=== PATIENT | female | born 1990 | race Caucasian/White ===

== ENCOUNTER → 2023-01-20 | Outpatient (CLI) | payer OTHER ==
[2023-01-20 15:39] VITALS: BP 130/91; PULSE 118; TEMP 98.1; BMI 42.7
--- NOTE | 2023-01-20 15:52 | P.BASOAP ---
Subjective Progress Note Date: 01/20/23 Patient looking into panniculectomy. Objective - Vital Signs Vital signs: Vital Signs Temp 98.1 F 01/20/23 15:36 Pulse 118 H 01/20/23 15:36 Resp BP 130/91 01/20/23 15:36 Pulse Ox FiO2 Intake & Output 01/19/23 01/20/23 01/20/23 18:59 06:59 18:59 Weight 109.316 kg Assessment/Plan Plan: Date: 01/20/23 Initial Weight: 170.097 kg Initial BMI: 66.4 Current Weight: 109.316 kg Current BMI: 42.7 Type of Surgery: Total Volume in Band: Previous Volume: Volume Removed: Volume Added: Band Size:
== END ==
LOC: BARWHC3 15:06
PROVIDERS: ATTEND Surgery Plastic and Reconstructive Surgery
DX: E66.01 Morbid (severe) obesity due to excess calories (principal); Z68.41 Body mass index [BMI] 40.0-44.9, adult; Z91.048 Other nonmedicinal substance allergy status; Z88.6 Allergy status to analgesic agent; Z88.0 Allergy status to penicillin
CPT/HCPCS: 99211

== ENCOUNTER → 2023-05-27 | Outpatient (CLI) | payer OTHER ==
[2023-05-27 16:55] LABS: Partial Thromboplastin Time 24.6 sec (22.0-30.0); Prothrombin Time 10.6 sec (9.0-12.0)
[2023-05-27 20:24] LABS: % Iron Saturation 8.08 (12.00-45.00); ALT 20 U/L (8-44); AST 19 U/L (13-35); Albumin 4.7 d/dL (3.8-4.9); Albumin/Globulin Ratio 1.74 Ratio (1.60-3.17); Alkaline Phosphatase 57 U/L (41-126); BUN/Creat Ratio 19.62 Ratio (12.00-20.00); Blood Urea Nitrogen 15.7 mg/dL (9.0-27.0); Calcium 9.5 mg/dL (8.7-10.3); Carbon Dioxide 26.3 mmol/L (21.6-31.8); Chloride 101 mmol/L (96-109); Chol/HDL Ratio 2.47 Ratio; Ferritin 11.7 ng/mL (10.0-291.0); Globulin 2.7 d/dL (1.6-3.3); Glucose 87 mg/dL (70-110); Iron 37 UG/DL (50-170); LDL Cholesterol,Calculated 87.7 mg/dL (0.0-131.0); Phosphorus 4.1 mg/dL (2.4-5.1); Potassium 4.2 mmol/L (3.5-5.5); Sodium 139 mmol/L (135-145); Total Bilirubin 0.4 mg/dL (0.3-1.2); Total Iron Binding Capacity 458 UG/DL (228-460); Total Protein 7.4 d/dL (6.2-8.2); VLDL Calculation 10.36 mg/dL (5.00-40.00)
[2023-05-27 20:26] LABS: Prealbumin 25.6 mg/dL (18.0-42.0)
[2023-05-27 22:54] LABS: HCT 41.6 % (37.2-46.3); HGB 13.1 d/dL (12.0-15.0); MCH 26.8 pg (27.0-32.0); MCHC 31.5 d/dL (32.0-37.0); MCV 85.2 FL (80.0-97.0); Mean Platelet Volume 11.3 FL (9.5-12.2); NRBC Per 100 WBC 0 X 10*3/uL (0.00-0.01); Platelet Count 316 X 10*3/uL (140-440); RBC 4.88 X 10*6/uL (4.10-5.20); RDW 13.9 % (11.5-14.5); WBC 8.72 X 10*3/uL (4.50-10.00)
== END | disposition home or self-care (01) ==
LOC: LABWHC1 16:11
PROVIDERS: ATTEND Surgery Plastic and Reconstructive Surgery
DX: E66.01 Morbid (severe) obesity due to excess calories (principal); D50.8 Other iron deficiency anemias; K91.2 Postsurgical malabsorption, not elsewhere classified; E44.0 Moderate protein-calorie malnutrition; E44.1 Mild protein-calorie malnutrition; E45 Retarded development following protein-calorie malnutrition; E55.9 Vitamin D deficiency, unspecified; K74.1 Hepatic sclerosis; N19 Unspecified kidney failure; T56.894A Toxic effect of other metals, undetermined, initial encounter; K50.90 Crohn's disease, unspecified, without complications
CPT/HCPCS: 36415; 80053; 80061; 82306; 82525; 82607; 82728; 82746; 83036; 83540; 83550; 83735; 83970; 84100; 84134; 84255; 84425; 84443; 84590; 84630; 85027; 85610; 85730

== ENCOUNTER → 2023-06-02 | Outpatient (CLI) | payer OTHER ==
[2023-06-02 16:09] VITALS: BP 127/83; PULSE 91; TEMP 98.3; BMI 45.2
--- NOTE | 2023-06-02 16:32 | P.BASOAP ---
Subjective Progress Note Date: 06/02/23 She has 20 pounds skin. Aggressively correct; NEeds irion correction. Follow up labs. Needs cardiac clearance. Objective - Vital Signs Vital signs: Vital Signs Temp 98.3 F 06/02/23 16:04 Pulse 91 06/02/23 16:04 Resp BP 127/83 06/02/23 16:04 Pulse Ox FiO2 Intake & Output 06/01/23 06/02/23 06/02/23 18:59 06:59 18:59 Weight 115.802 kg Assessment/Plan Plan: Date: 06/02/23 Initial Weight: 170.097 kg Initial BMI: 66.4 Current Weight: 115.802 kg Current BMI: 45.2 Type of Surgery: Total Volume in Band: Previous Volume: Volume Removed: Volume Added: Band Size:
== END ==
LOC: BARWHC3 15:50
PROVIDERS: ATTEND Surgery Plastic and Reconstructive Surgery
DX: Z53.9 Procedure and treatment not carried out, unspecified reason (principal)
CPT/HCPCS: 99211

== ENCOUNTER → 2023-07-21 | Outpatient (CLI) | payer OTHER ==
[2023-07-21 20:38] LABS: Basophils # (A) 0.04 X 10*3/uL (0.00-0.10); Basophils % (A) 0.4 %; Eosinophils # (A) 0.02 X 10*3/uL (0.04-0.35); Eosinophils % (A) 0.2 %; HCT 45.3 % (37.2-46.3); HGB 14.6 d/dL (12.0-15.0); Lymphocytes # (A) 2.33 X 10*3/uL (0.90-5.00); Lymphocytes % (A) 25.4 %; MCHC 32.2 d/dL (32.0-37.0); MCV 86.9 FL (80.0-97.0); Monocytes # (A) 0.62 X 10*3/uL (0.20-1.00); Monocytes % (A) 6.8 %; NRBC Per 100 WBC 0 X 10*3/uL (0.00-0.01); Neutrophils # (A) 6.08 X 10*3/uL (1.80-7.70); Neutrophils % (A) 66.2 %; Platelet Count 294 X 10*3/uL (140-440); RBC 5.21 X 10*6/uL (4.10-5.20); RDW 14.5 % (11.5-14.5); WBC 9.18 X 10*3/uL (4.50-10.00)
[2023-07-21 20:44] LABS: ALT 21 U/L (8-44); AST 15 U/L (13-35); Albumin 4.8 d/dL (3.8-4.9); Albumin/Globulin Ratio 1.85 Ratio (1.60-3.17); Alkaline Phosphatase 51 U/L (41-126); BUN/Creat Ratio 18.89 Ratio (12.00-20.00); Carbon Dioxide 26.4 mmol/L (21.6-31.8); Chloride 102 mmol/L (96-109); Globulin 2.6 d/dL (1.6-3.3); Glucose 81 mg/dL (70-110); Potassium 4.7 mmol/L (3.5-5.5); Sodium 140 mmol/L (135-145); Total Bilirubin 0.4 mg/dL (0.3-1.2); Total Protein 7.4 d/dL (6.2-8.2)
== END | disposition home or self-care (01) ==
LOC: LABPAT 14:42
PROVIDERS: ATTEND Surgery Plastic and Reconstructive Surgery
DX: Z01.812 Encounter for preprocedural laboratory examination (principal)
CPT/HCPCS: 36415; 80053; 85025

== ENCOUNTER 2023-07-26 12:19 | Inpatient (IN) | payer OTHER ==
[2023-07-20 17:33] VITALS: BMI 46.0
--- NOTE | 2023-07-26 06:57 | P.GSHP ---
History of Present Illness H&P Date: 07/26/23 CHIEF COMPLAINT: Panniculitis HISTORY OF PRESENT ILLNESS: Kayleigh Fischer is a 32-year-old female who status post sleeve gastrectomy, she is 2 years out. She has panniculitis for over 3 years. She reports painful skin ulcerations and breakdown along her pannus despite medical treatments and prescriptions. She has been using prescription strength Nystatin powder without improvement. She has pulling sensation along her lower back from her pannus. She has troubles with grooming and hygiene as a result of her pannus. Her pannus interferes with her activities of daily living including dressing, bathing, and hygiene. She presents for evaluation for a panniculectomy. At height of 5 feet 3 inches, her ideal body weight is 140 pounds. She comes in 251 pounds from 374 pounds. Her BMI was 46.1. Her body mass index was 66.4. She has lost 122 pounds. She is 116 pounds overweight. PAST MEDICAL HISTORY: 1. Morbid obesity due to excess calories 2. Body mass index of 66.4, initial 3. Osteoarthritis of the knees. 4. Osteoarthritis of the hips 5. Osteoarthritis of the lower back. 6. Gastroesophageal reflux disease 7. Crohns disease 8. Hypertensive heart disease 9. Generalized anxiety disorder PAST SURGICAL HISTORY: 1. section x 3 2. Sleeve gastrectomy HOME MEDICATIONS: Reviewed ALLERGIES: Reviewed SOCIAL HISTORY: Denies past tobacco use. FAMILY HISTORY: No family history of ulcerative colitis disease or Crohn's disease. Family history of morbid obesity. No lupus in the family. No reports of stomach or esophageal cancer. Aunt had blood clot. Family history of gallbladder disease. REVIEW OF ORGAN SYSTEMS: CONSTITUTIONAL: At height of 5 feet 3 inches, her ideal body weight is 140 pounds. She comes in 374 pounds. Her body mass index is 66.4. She is 234 pounds overweight. HEENT: Denies any active troubles with vision or hearing. ENDOCRINE: Denies diabetes. No hypothyroidism. CARDIOVASCULAR: Denies past reports of palpitations or heart attacks or chest pain. Has hypertensive heart disease. RESPIRATORY: Has daytime somnolence. Denies asthma. GASTROINTESTINAL: Denies any bright red blood per rectum. Has Crohn's disease MUSCULOSKELETAL: Has lower back pain and joint pain. Has osteoarthritis of the knees. History of bilateral lower extremity edema. NEURO: No headaches. No seizure disorders. PSYCH: Denies depression. No suicidal ideation. RHEUMATOLOGIC: No lupus. No rheumatoid arthritis. HEMATOLOGIC: Has abnormal bleeding or bruising. No personal history of DVTs. SKIN: No rash. No skin cancer. PHYSICAL EXAM: VITAL SIGNS: Height 5 foot 2 inches, weight 251 pounds. BMI 46.1 GENERAL: Well-developed in no acute distress. HEENT: No scleral icterus. Extraocular movements grossly intact. Hears conversational speech. No nasal drainage. NECK: Supple without lymphadenopathy. CHEST: Nonlabored respirations with equal bilateral excursions. CARDIOVASCULAR:Tachycardic. Distal 2+ pulses. ABDOMEN: Obese, soft, nontender, nondistended. Panniculitis grade 3, over MUSCULOSKELETAL: No clubbing, cyanosis. NEURO: No focal or lateralizing signs. Cranial nerves 2 through 12 grossly within normal limits. PSYCH: Appropriate affect. Alert and oriented to person, place and time. SKIN: Good skin turgor. Well perfused. ASSESSMENT: 1. Panniculitis 2. Body mass index of 46.1 3. Osteoarthritis of the knees. 4. Osteoarthritis of the hips 5. Osteoarthritis of the lower back. 6. Gastroesophageal reflux disease 7. Crohns disease 8. Elevated liver enzymes 9. Hypertriglyceridemia 10. Vitamin D deficiency 11. Secondary hyperparathyroidism 12. Hypertensive heart disease 13. Generalized anxiety disorder 14. Morbid obesity due to excess calories PLAN: 1. Recommend panniculectomy for chronic panniculitis with concomittant severe lower back pain and uncontrolled symptoms despite systemic and local treatment including limitation of activities of daily living. Anticipated resection over 10+ pounds described. Panniculectomy should correct her functional deficits. 2. Recommend 2 week protein diet for optimal recovery 3. Risks of bleeding, needs for drains, flap failure, infection, need for further surgery were described. She is high risk for warren-operative complications with anticipated 10+ skin resection. 4. Inpatient hospitalization also described 5. DVT prophylaxis. 6 Extended recovery more than 6-8 weeks described including placement of drains more than 2 weeks reviewed. Past Medical History Past Medical History: GERD/Reflux, Hypertension Additional Past Medical History / Comment(s): CROHNS/IBS, migraines,140# wt loss History of Any Multi-Drug Resistant Organisms: None Reported Past Surgical History: Bariatric Surgery, Section, Cholecystectomy Additional Past Surgical History / Comment(s): c section x 3, lap cholecystectomy 03-24-21. sleeve gastrectomy 05-12-21 Past Anesthesia/Blood Transfusion Reactions: No Reported Reaction Additional Past Anesthesia/Blood Transfusion Reaction / Comment(s): no hx blood transfusion Smoking Status: Never smoker - Past Family History Mother Family Medical History: No Reported History Medications and Allergies Home Medications Medication Instructions Recorded Confirmed Type ALPRAZolam [Xanax] 0.5 mg PO DAILY PRN 01/10/21 07/20/23 History Cetirizine HCl [Zyrtec] 10 mg PO DAILY 01/10/21 07/20/23 History Cyclobenzaprine [Flexeril] 10 mg PO DAILY PRN 05/07/21 07/20/23 History Acetaminophen Oral Susp [Tylenol] 1,000 mg PO Q6H #400 ml 05/14/21 07/20/23 Rx bisacodyL [Dulcolax] 5 mg PO DAILY PRN #10 tablet.dr 05/14/21 07/20/23 Rx Calcium Citrate 500 mg PO DAILY 08/20/21 07/20/23 History Ergocalciferol [Vitamin D2 (1250 1,250 mcg PO WEEKLY 08/20/21 07/20/23 History Mcg = 14732 Iu)] Multivitamin with Iron 1 each PO DAILY 08/20/21 07/20/23 History [Multivitamins with Iron] lisinopriL [Zestril] 10 mg PO QAM 06/02/23 07/20/23 History Butalb/Acetaminophen/Caffeine 1 tab PO Q4H PRN 07/20/23 07/20/23 History [Fioricet 50-325-40] Elderberry Fruit [Elderberry] 50 mg PO DAILY 07/20/23 07/20/23 History L.acidoph,Paracasei, B.lactis 1 each PO DAILY 07/20/23 07/20/23 History [Probiotic] Lisdexamfetamine Dimesylate 30 mg PO QAM 07/20/23 07/20/23 History [Vyvanse] Nystatin 100,000 Unit/gm Powd 1 applic TOPICAL BID PRN 07/20/23 07/20/23 History [Mycostatin Powder] Allergies Allergy/AdvReac Type Severity Reaction Status Date / Time adhesive Allergy Rash/Hives Verified 07/20/23 17:12 aspirin Allergy Rash/Hives Verified 07/20/23 17:12 hydrochlorothiazide Allergy Nausea & Verified 07/20/23 17:12 Vomiting ibuprofen [From Motrin] Allergy Rash/Hives Verified 07/20/23 17:12 Penicillins Allergy Rash/Hives Verified 07/20/23 17:12
[~2023-07-26 12:19] MED LIST: DEXAMETHASONE SOD PHOSPHATE 4 MG/ML 1 ML VIAL IV ONE; HEPARIN SODIUM,PORCINE/PF 5,000 UNIT/0.5 ML SYRINGE SQ PRN; LIDOCAINE 1% (10MG/ML) FOR IV START INTRADERMA PRN; MIDAZOLAM 2 MG/2 ML VIAL IV PRN; ONDANSETRON 4 MG/2 ML VIAL IVP ONE; ONDANSETRON 4 MG/2 ML VIAL IVP PRN
[2023-07-26] MEDS ORDERED: SCOPOLAMINE 1 MG/72 HR PATCH TRANSDERM ONE (13:45)
[2023-07-26] MEDS: LACTATED RINGERS 1,000 ML IV SCH (13:48)
[2023-07-26] MEDS ORDERED: PROPOFOL 10 MG/ML 20 ML VIAL IV ONE (16:39)
[2023-07-26] MEDS ORDERED: GLYCOPYRROLATE 0.2 MG/ML 2 ML VIAL ONE (16:39)
[2023-07-26] MEDS ORDERED: diphenhydrAMINE 50 MG/ML 1 ML VIAL ONE (16:39)
[2023-07-26] MEDS ORDERED: fentaNYL (PF) 50 MCG/ML 2 ML AMP ONE (16:39)
[2023-07-26] MEDS ORDERED: ROCURONIUM 10 MG/ML (5 ML VIAL) IV ONE (16:39)
[2023-07-26] MEDS ORDERED: LIDOCAINE 1% INJ 10MG/ML (20 ML MDV) ONE (16:39)
[2023-07-26] MEDS ORDERED: NEOSTIGMINE 1 MG/ML 10 ML VIAL ONE (16:39)
[2023-07-26] MEDS ORDERED: MIDAZOLAM 2 MG/2 ML VIAL ONE (16:39)
[2023-07-26] MEDS ORDERED: SUCCINYLCHOLINE CHLORIDE 200 MG/10 ML VIAL IV ONE (16:39)
[2023-07-26] MEDS ORDERED: LACTATED RINGERS 1,000 ML IV ONE (19:27)
[2023-07-26] MEDS: HYDROmorphone 0.5 MG/0.5 ML SYRINGE IVP PRN ×2 (20:18→20:28)
[2023-07-26] MEDS ORDERED: NALOXONE 0.4 MG/ML 1 ML VIAL IV PRN (20:31)
[2023-07-26] MEDS ORDERED: BUTALB/APAP/CAFF 50-325-40MG TAB PO PRN (20:32)
[2023-07-26] MEDS ORDERED: ALPRAZolam 0.5 MG TAB PO PRN (20:32)
[2023-07-26] MEDS ORDERED: bisacodyL 5 MG TABLET.DR PO PRN (20:32)
[2023-07-26] MEDS ORDERED: CYCLOBENZAPRINE 10 MG TAB PO PRN (20:32)
--- NOTE | 2023-07-26 20:37 | P.OP ---
Date of Procedure: 07/26/23 Description of Procedure: SURGEON: GRETCHEN ALVAREZ MD PREOPERATIVE DIAGNOSES: 1. Panniculitis 2. Body mass index of 68.5 to 46.1 3. Osteoarthritis of the knees. 4. Osteoarthritis of the hips 5. Osteoarthritis of the lower back. 6. Gastroesophageal reflux disease 7. Crohns disease 8. Elevated liver enzymes 9. Hypertriglyceridemia 10. Vitamin D deficiency 11. Secondary hyperparathyroidism 12. Hypertensive heart disease 13. Generalized anxiety disorder 14. Morbid obesity due to excess calories 15. Status post massive weight loss, 123 pounds. POSTOPERATIVE DIAGNOSES: 1. Panniculitis 2. Body mass index of 68.5 to 46.1 3. Osteoarthritis of the knees. 4. Osteoarthritis of the hips 5. Osteoarthritis of the lower back. 6. Gastroesophageal reflux disease 7. Crohns disease 8. Elevated liver enzymes 9. Hypertriglyceridemia 10. Vitamin D deficiency 11. Secondary hyperparathyroidism 12. Hypertensive heart disease 13. Generalized anxiety disorder 14. Morbid obesity due to excess calories 15. Status post massive weight loss, 123 pounds. OPERATION: 1. Panniculectomy, 13.6 pounds. ANESTHESIA: General ESTIMATED BLOOD LOSS: 250 mL SPECIMENS REMOVED: Pannus 13.6 pounds. COMPLICATIONS: None. CONDITION: Stable. DRAINS: Two #19 Gallo drains below abdominal flap extending through the pubis. OPERATIVE FINDINGS: 1. Pannus weighing 13.6 pounds, excised. INDICATIONS: Kayleigh Fischer is a 32-year-old female who status post sleeve gastrectomy, she is 2 years out. She has panniculitis for over 3 years. She reports painful skin ulcerations and breakdown along her pannus despite medical treatments and prescriptions. She has been using prescription strength Nystatin powder without improvement. She has pulling sensation along her lower back from her pannus. She has troubles with grooming and hygiene as a result of her pannus. Her pannus interferes with her activities of daily living including dressing, bathing, and hygiene. She presents for evaluation for a panniculectomy. At height of 5 feet 3 inches, her ideal body weight is 140 pounds. She comes in 251 pounds from 374 pounds. Her BMI was 46.1. Her body mass index was 66.4. She has lost 122 pounds. She is 116 pounds overweight. Despite medical therapy with prescription powders, she has developed severe medical refractory panniculitis. Given her clinical symptoms, including massive weight loss, she elected for surgical intervention with a panniculectomy. Benefits and risks of the procedure including bleeding, infection, risk of flap failure, abdominal wall seromas, chronic pain were described at length. Informed consent was obtained. DESCRIPTION: In the preanesthesia care unit the patient was marked with an indelible marker. She had also been given heparin subcutaneously. The patient was brought into the operating room and laid in supine position. After general induction, a Winchester catheter was placed. The abdomen was then prepped and draped in standard sterile fashion using ChloraPrep. The skin was prepped as far laterally to the back, inferiorly to the upper thighs and superiorly to above the bilateral breasts. A timeout protocol was confirmed with the surgical team regarding patient's name, procedure to be performed, including preoperative medications. She had rec eived Ancef 3 grams IV antibiotics. Once the time-out protocol was confirmed with the surgical team, the patient was re-marked with indelible marker whereby the midline of the xiphoid to the mons pubis was marked. The anterior/superior iliac spine along the bilateral hips was also marked. Approximately 8 cm above the pubis commissure a transverse incision was made for the inferior portion of the flap. Using a #10 blade, the incision was taken from the midline laterally to above the anterior/superior iliac spine, initially on the left side of the patient and then on the right side of the brandee ent. The umbilicus was transected. Electro-Bovie cautery was used to control for hemostasis. The dissection was taken down to the level of the fascia. Landmarks used were the xiphoid process as well as the bilateral costal margins for the superior margin. Care was taken to avoid any creation of dog ears during the dissection. Hemostasis was once again checked with electro-Bovie cautery and all defects were addressed. Attention was now brought to closure of the flap. Using stainless steel skin geoff, the midline was once again marked of the upper flap as well as the pubic commissure. The patient was placed in a flexed position of approximately 30 degrees at the hips. The pannus was extended inferiorly to the feet. The upper flap was created once the excess skin was excised. Again care was taken to avoid any dog ears along the lateral aspect of the incisions. Once excised, the pannus was weighed at 13.6 pounds. The upper and lower flaps were reapproximated at the midline and then laterally to the skin with skin geoff. Once reapproximated, the skin was closed in layers using 0 Vicryl for the superficial fascial system followed by running 3-0 Monocryl for the deep dermis in a running subcuticular fashion. Prior to skin closure, two round #19 Gallo drains were placed underneath the flap and brought out just inferior to the incision along the pubis. Drain stitch using 2-0 nylon was placed. Once the incision was closed, bulb suction was attached. Hemostasis was checked. At the end of the procedure, the needle, sponge and instrument count was verified correct. Exofin tape was placed along the length of the incision. Optifoam dressings were applied over the incision and used as a drain sponge. The patient was then transferred to a hospital bed in a beach chair position. An abdominal binder was placed and marked. The patient was taken to the postanesthesia care unit in stable condition, awake and extubated.
[2023-07-26] MEDS ORDERED: ONDANSETRON 4 MG/2 ML VIAL IVP ONE (20:50)
[2023-07-26] MEDS ORDERED: ACETAMINOPHEN IV (For NPO) 1,000 MG in EMPTY BAG 1 BAG IVPB ONE (21:30)
[2023-07-26] MEDS: fentaNYL PCA 500 MCG/50 ML BAG IV SCH (21:51)
[2023-07-26] MEDS: diphenhydrAMINE 50 MG/ML 1 ML VIAL IVP SCH (22:06)
[2023-07-26] MEDS: DEXAMETHASONE SOD PHOSPHATE 4 MG/ML 1 ML VIAL IVP SCH (22:06)
[2023-07-26] MEDS ORDERED: SCOPOLAMINE 1 MG/72 HR PATCH TRANSDERM STA (22:07)
[2023-07-26] MEDS: D5-0.45% NACL WITH KCL 20MEQ/L 1,000 ML IV SCH (22:09)
[2023-07-26] MEDS: ONDANSETRON 4 MG/2 ML VIAL IVP SCH (22:46)
[2023-07-27] MEDS: diphenhydrAMINE 50 MG/ML 1 ML VIAL IVP SCH ×4 (00:24→17:15)
[2023-07-27] MEDS: DEXAMETHASONE SOD PHOSPHATE 4 MG/ML 1 ML VIAL IVP SCH ×4 (00:25→17:15)
[2023-07-27] MEDS: ACETAMINOPHEN ORAL SUSP (PEDS) 3,840 MG/120 ML BOTTLE PO SCH ×4 (03:54→21:11)
[2023-07-27] MEDS: ONDANSETRON 4 MG/2 ML VIAL IVP SCH ×4 (03:55→21:11)
[2023-07-27] MEDS: D5-0.45% NACL WITH KCL 20MEQ/L 1,000 ML IV SCH ×3 (04:12→17:17)
[2023-07-27] MEDS: fentaNYL PCA 500 MCG/50 ML BAG IV SCH ×2 (05:13→21:06)
[2023-07-27] MEDS: LORATADINE 10 MG TAB PO SCH (09:07)
[2023-07-27] MEDS: lisinopriL 10 MG TAB PO SCH (09:13)
[2023-07-27] MEDS: ENOXAPARIN 30 MG/0.3 ML SYRINGE SQ SCH (09:31)
[2023-07-27] MEDS: PANTOPRAZOLE 40 MG/10 ML VIAL IV SCH (09:32)
[2023-07-27] MEDS: LACTATED RINGERS 1,000 ML IV SCH (09:57)
[2023-07-27 10:49] LABS: Basophils # (A) 0.04 X 10*3/uL (0.00-0.10); Basophils % (A) 0.3 %; Eosinophils # (A) 0 X 10*3/uL (0.04-0.35); Eosinophils % (A) 0 %; HCT 31.2 % (37.2-46.3); HGB 10.2 d/dL (12.0-15.0); Lymphocytes # (A) 0.78 X 10*3/uL (0.90-5.00); Lymphocytes % (A) 5.2 %; MCH 28.6 pg (27.0-32.0); MCHC 32.7 d/dL (32.0-37.0); MCV 87.4 FL (80.0-97.0); Mean Platelet Volume 10.9 FL (9.5-12.2); Monocytes # (A) 0.92 X 10*3/uL (0.20-1.00); Monocytes % (A) 6.1 %; NRBC Per 100 WBC 0 X 10*3/uL (0.00-0.01); Neutrophils # (A) 13.22 X 10*3/uL (1.80-7.70); Neutrophils % (A) 87.5 %; Platelet Count 275 X 10*3/uL (140-440); RBC 3.57 X 10*6/uL (4.10-5.20); RDW 13.8 % (11.5-14.5); WBC 15.09 X 10*3/uL (4.50-10.00)
--- NOTE | 2023-07-27 15:22 | P.PN ---
Subjective Progress Note Date: 07/27/23 CHIEF COMPLAINT: Panniculitis HISTORY OF PRESENT ILLNESS: Patient postop day #1 status post panniculectomy. Patient does complain of abdominal pain. She's only ambulated to her chair. Winchester catheter removed this morning. Patient did urinate. She is still requiring ALFALFA DEHYDRATOR OPERATOR pump. Denies any nausea vomiting. YOSVANY drains with a goal of 210 mL sanguinous output. Afebrile. WBC is 15.09 Hgb 10 PHYSICAL EXAM: VITAL SIGNS: Reviewed GENERAL: Well-developed in no acute distress. HEENT: No sclera icterus. Extraocular movements grossly intact. Moist buccal mucosa. Head is atraumatic, normocephalic. Hears conversational speech. No nasal drainage. NECK: Supple without lymphadenopathy. CHEST: Non-labored respirations and equal bilateral excursions. CARDIOVASCULAR: Palpable 2+ radial pulses. ABDOMEN: Soft. Nondistended. Nontender. MUSCULOSKELETAL: No clubbing or cyanosis. NEUROLOGIC: No focal or lateralizing signs. Cranial nerves II through XII grossly intact. PSYCH: Appropriate affect. Alert and oriented to person, place and time. SKIN: Well perfused. Good skin turgor. ASSESSMENT: 1. Panniculitis 2. Body mass index of 68.5 to 46.1 3. Osteoarthritis of the knees. 4. Osteoarthritis of the hips 5. Osteoarthritis of the lower back. 6. Gastroesophageal reflux disease 7. Crohns disease 8. Elevated liver enzymes 9. Hypertriglyceridemia 10. Vitamin D deficiency 11. Secondary hyperparathyroidism 12. Hypertensive heart disease 13. Generalized anxiety disorder 14. Morbid obesity due to excess calories 15. Status post massive weight loss, 123 pounds. 16. Leukocytosis possibly related to steroids PLAN: -Continue pain management -Continue regular diet -Continue abdominal binder. Do not remove abdominal binder -Continue IV fluids -Encourage patient to ambulate -Encourage patient to use incentive spirometer -Repeat CBC in a.m. -DVT prophylaxis [employer] Physician Electrical & Instrumentation Supervisor note has been reviewed by physician. Signing provider agrees with the documented findings, assessment, and plan of care. Objective - Vital Signs Vital signs: Vital Signs Temp 98.6 F 07/27/23 13:48 Pulse 93 07/27/23 13:48 Resp 16 07/27/23 13:48 BP 100/63 07/27/23 13:48 Pulse Ox 98 07/27/23 13:48 FiO2 Intake & Output 07/26/23 07/27/23 07/27/23 18:59 06:59 18:59 Intake Total 1050 900 Output Total 1080 80 Balance 1050 -180 -80 Weight 116.2 kg 116.2 kg Intake: IV 1050 900 Output: Drainage 480 80 Left Lower 260 40 Right Lower 220 40 Urine 300 Estimated Blood Loss 300 Other: Voiding Method Indwelling Catheter Indwelling Catheter - Labs CBC & Chem 7: 07/27/23 06:27 Labs: Abnormal Lab Results - Last 24 Hours (Table) 07/27/23 Range/Units 06:27 WBC 15.09 H (4.50-10.00) X 10*3/uL RBC 3.57 L (4.10-5.20) X 10*6/uL Hgb 10.2 L (12.0-15.0) d/dL Hct 31.2 L (37.2-46.3) % Neutrophils # 13.22 H (1.80-7.70) X 10*3/uL Lymphocytes # 0.78 L (0.90-5.00) X 10*3/uL Eosinophils # 0 L (0.04-0.35) X 10*3/uL
[2023-07-28] MEDS: diphenhydrAMINE 50 MG/ML 1 ML VIAL IVP SCH ×3 (00:51→13:42)
[2023-07-28] MEDS: D5-0.45% NACL WITH KCL 20MEQ/L 1,000 ML IV SCH ×3 (00:51→13:42)
[2023-07-28] MEDS: DEXAMETHASONE SOD PHOSPHATE 4 MG/ML 1 ML VIAL IVP SCH ×3 (00:51→13:43)
[2023-07-28] MEDS: ONDANSETRON 4 MG/2 ML VIAL IVP SCH ×3 (04:21→16:12)
[2023-07-28] MEDS: ACETAMINOPHEN ORAL SUSP (PEDS) 3,840 MG/120 ML BOTTLE PO SCH ×3 (04:22→16:03)
[2023-07-28] MEDS: lisinopriL 10 MG TAB PO SCH (09:55)
[2023-07-28] MEDS: ENOXAPARIN 30 MG/0.3 ML SYRINGE SQ SCH (10:01)
[2023-07-28] MEDS: LORATADINE 10 MG TAB PO SCH (10:01)
[2023-07-28] MEDS: PANTOPRAZOLE 40 MG/10 ML VIAL IV SCH (10:02)
[2023-07-28] MEDS: LACTATED RINGERS 1,000 ML IV SCH (10:43)
[2023-07-28] MEDS: HYDROmorphone 1 MG/ML 1 ML SYRINGE IVP PRN ×2 (11:06→16:12)
[2023-07-28 11:19] LABS: Basophils # (A) 0.02 X 10*3/uL (0.00-0.10); Basophils % (A) 0.1 %; Eosinophils # (A) 0.04 X 10*3/uL (0.04-0.35); Eosinophils % (A) 0.3 %; HCT 24.8 % (37.2-46.3); HGB 8.2 d/dL (12.0-15.0); Lymphocytes # (A) 1.18 X 10*3/uL (0.90-5.00); Lymphocytes % (A) 7.5 %; MCHC 33.1 d/dL (32.0-37.0); MCV 87.6 FL (80.0-97.0); Mean Platelet Volume 11.2 FL (9.5-12.2); Monocytes # (A) 1.49 X 10*3/uL (0.20-1.00); Monocytes % (A) 9.4 %; NRBC Per 100 WBC 0 X 10*3/uL (0.00-0.01); Neutrophils # (A) 12.91 X 10*3/uL (1.80-7.70); Neutrophils % (A) 81.7 %; Platelet Count 236 X 10*3/uL (140-440); RBC 2.83 X 10*6/uL (4.10-5.20); RDW 14.4 % (11.5-14.5)
[2023-07-28 14:32] VITALS: BP 95/58; PULSE 100; RESP 18; TEMP 98.6
--- NOTE | 2023-07-28 14:35 | P.DS ---
Providers Date of admission: 07/26/23 12:19 Expected date of discharge: 07/28/23 Attending physician: Carol Hoffman Consults: 07/26/23 09:00 Consult Physician Routine Consulting Provider: [facility] Consult Reason/Comments: [facility] Do you want consulting provider notified?: Yes Primary care physician: Richi Rendon Hospital Course: Discharge diagnosis 1. Panniculitis 2. Body mass index of 68.5 to 46.1 3. Osteoarthritis of the knees. 4. Osteoarthritis of the hips 5. Osteoarthritis of the lower back. 6. Gastroesophageal reflux disease 7. Crohns disease 8. Elevated liver enzymes 9. Hypertriglyceridemia 10. Vitamin D deficiency 11. Secondary hyperparathyroidism 12. Hypertensive heart disease 13. Generalized anxiety disorder 14. Morbid obesity due to excess calories 15. Status post massive weight loss, 123 pounds. Hospital course Kayleigh Fischer is a 32-year-old female who status post sleeve gastrectomy, she is 2 years out. She has panniculitis for over 3 years. She reports painful skin ulcerations and breakdown along her pannus despite medical treatments and prescriptions. Patient is status post panniculectomy. Her pain is controlled. She is up and ambulating. She is tolerating diet. She did have a bowel movement. She's afebrile. She is stable for discharge. Physician Tire Fixer note has been reviewed by physician. Signing provider agrees with the documented findings, assessment, and plan of care. Patient Condition at Discharge: Stable Plan - Discharge Summary Discharge Rx Participant: Yes New Discharge Prescriptions: New Omeprazole [PriLOSEC] 40 mg PO DAILY #30 cap Acetaminophen Tab [Tylenol] 1,000 mg PO Q6HR PRN #30 tablet PRN Reason: Pain Simethicone 40 mg/0.6 ml Drops [Mylicon Drops] 40 mg PO PCHS PRN #30 ml PRN Reason: gas Continue ALPRAZolam [Xanax] 0.5 mg PO DAILY PRN PRN Reason: Anxiety Cyclobenzaprine [Flexeril] 10 mg PO DAILY PRN PRN Reason: Pain bisacodyL [Dulcolax] 5 mg PO DAILY PRN #10 tablet.dr PRN Reason: Constipation lisinopriL [Zestril] 10 mg PO QAM Butalb/Acetaminophen/Caffeine [Fioricet 50-325-40] 1 tab PO Q4H PRN PRN Reason: migraines Cetirizine HCl [Zyrtec] 10 mg PO DAILY L.acidoph,Paracasei, B.lactis [Probiotic] 1 each PO DAILY Discontinued Ergocalciferol [Vitamin D2 (1250 Mcg = 91414 Iu)] 1,250 mcg PO WEEKLY Calcium Citrate 500 mg PO DAILY Elderberry Fruit [Elderberry] 50 mg PO DAILY Nystatin 100,000 Unit/gm Powd [Mycostatin Powder] 1 applic TOPICAL BID PRN PRN Reason: Skin Irritation Acetaminophen Oral Susp [Tylenol] 1,000 mg PO Q6H #400 ml Multivitamin with Iron [Multivitamins with Iron] 1 each PO DAILY Discharge Medication List ALPRAZolam [Xanax] 0.5 mg PO DAILY PRN 01/10/21 [History] Cetirizine HCl [Zyrtec] 10 mg PO DAILY 01/10/21 [History] Cyclobenzaprine [Flexeril] 10 mg PO DAILY PRN 05/07/21 [History] bisacodyL [Dulcolax] 5 mg PO DAILY PRN #10 tablet. 05/14/21 [Rx] lisinopriL [Zestril] 10 mg PO QAM 06/02/23 [History] Butalb/Acetaminophen/Caffeine [Fioricet 50-325-40] 1 tab PO Q4H PRN 07/20/23 [History] L.acidoph,Paracasei, B.lactis [Probiotic] 1 each PO DAILY 07/20/23 [History] Acetaminophen Tab [Tylenol] 1,000 mg PO Q6HR PRN #30 tablet 07/28/23 [Rx] Omeprazole [PriLOSEC] 40 mg PO DAILY #30 cap 07/28/23 [Rx] Simethicone 40 mg/0.6 ml Drops [Mylicon Drops] 40 mg PO PCHS PRN #30 ml 07/28/23 [Rx] [facility]Ref[facility] [place] [facility] [place] [facility]23 9:00 am Activity/Diet/Wound Care/Special Instructions: No lifting over 4 pounds in 4 weeks. No bathtub soaks. No shower. No stretching or twisting. Sleep in a recliner. DO NOT REMOVE DRESSINGS. DO NOT REMOVE BINDER. Keep record of YOSVANY outputs daily. Hold on resuming vitamins until seen by surgeon Discharge Disposition: HOME SELF-CARE
== END 2023-07-28 17:39 | disposition home or self-care (01) | DRG 385 ==
LOC: 2ORMAIN 12:19 → 4SSUR 20:17
PROVIDERS: ADMIT Surgery Plastic and Reconstructive Surgery; ATTEND Surgery Plastic and Reconstructive Surgery
PROC: 0JB80ZZ Excision of Abdomen Subcutaneous Tissue and Fascia, Open Approach (ICD-10-PCS; principal; 2023-07-26 14:30)
DX: M79.3 Panniculitis, unspecified (principal); E66.01 Morbid (severe) obesity due to excess calories; Z68.42 Body mass index [BMI] 45.0-49.9, adult; K21.9 Gastro-esophageal reflux disease without esophagitis; K50.90 Crohn's disease, unspecified, without complications; F41.1 Generalized anxiety disorder; D64.9 Anemia, unspecified; R74.01 Elevation of levels of liver transaminase levels; E78.1 Pure hyperglyceridemia; E55.9 Vitamin D deficiency, unspecified; M19.09 Primary osteoarthritis, other specified site; L98.499 Non-pressure chronic ulcer of skin of other sites with unspecified severity; M54.50 Low back pain, unspecified; N25.81 Secondary hyperparathyroidism of renal origin; M17.0 Bilateral primary osteoarthritis of knee; M16.0 Bilateral primary osteoarthritis of hip; D72.829 Elevated white blood cell count, unspecified; T38.0X5A Adverse effect of glucocorticoids and synthetic analogues, initial encounter; I11.9 Hypertensive heart disease without heart failure; Z98.84 Bariatric surgery status; Z88.6 Allergy status to analgesic agent; Z88.2 Allergy status to sulfonamides; Z88.0 Allergy status to penicillin
CPT/HCPCS: 81025; 85025

== ENCOUNTER → 2023-07-30 | Outpatient (CLI) | payer OTHER ==
[2023-07-30 10:30] VITALS: BP 113/80; PULSE 86; RESP 13; TEMP 98.5; BMI 45.0
--- NOTE | 2023-07-30 11:30 | P.BASOAP ---
Subjective Progress Note Date: 07/30/23 Has moderate bruising. Binder readjusted. Drainage dark. Follow-up next Wednesday per patient request. Objective - Vital Signs Vital signs: Vital Signs Temp 98.5 F 07/30/23 10:05 Pulse 86 07/30/23 10:05 Resp 13 07/30/23 10:05 BP 113/80 07/30/23 10:05 Pulse Ox FiO2 Intake & Output 07/29/23 07/30/23 07/30/23 18:59 06:59 18:59 Weight 115.394 kg Assessment/Plan Plan: Date: 07/30/23 Initial Weight: 170.097 kg Initial BMI: 66.4 Current Weight: 115.394 kg Current BMI: 45.0 Type of Surgery: Total Volume in Band: Previous Volume: Volume Removed: Volume Added: Band Size:
== END ==
LOC: BARWHC3 09:40
PROVIDERS: ATTEND Surgery Plastic and Reconstructive Surgery
DX: Z53.9 Procedure and treatment not carried out, unspecified reason (principal)
CPT/HCPCS: 99212

== ENCOUNTER → 2023-08-11 | Outpatient (CLI) | payer OTHER ==
[~2023-08-11] MED LIST changes: -DEXAMETHASONE SOD PHOSPHATE 4 MG/ML 1 ML VIAL IV ONE; -HEPARIN SODIUM,PORCINE/PF 5,000 UNIT/0.5 ML SYRINGE SQ PRN; -LIDOCAINE 1% (10MG/ML) FOR IV START INTRADERMA PRN; -MIDAZOLAM 2 MG/2 ML VIAL IV PRN; -ONDANSETRON 4 MG/2 ML VIAL IVP ONE; -ONDANSETRON 4 MG/2 ML VIAL IVP PRN; +SODIUM CHLORIDE 0.9% 1,000 ML IV ONE
[2023-08-11 13:58] LABS: Basophils % (A) 0 %; Eosinophils # (A) 0.1 k/uL (0-0.7); Eosinophils % (A) 1 %; HCT 31.7 % (34.0-46.0); HGB 10.4 gm/dL (11.4-16.0); Hypochromasia Slight; Lymphocytes % (A) 4 %; MCH 28.7 pg (25.0-35.0); MCHC 32.8 g/dL (31.0-37.0); MCV 87.5 fL (80.0-100.0); Mean Platelet Volume 8.6; Monocytes # (A) 1.1 k/uL (0-1.0); Monocytes % (A) 5 %; Neutrophils # (A) 19.4 k/uL (1.3-7.7); Neutrophils % (A) 90 %; Platelet Count 357 k/uL (150-450); RBC 3.62 m/uL (3.80-5.40); RDW 14.2 % (11.5-15.5); WBC 21.7 k/uL (3.8-10.6)
[2023-08-11 14:03] VITALS: BP 96/63; PULSE 101; RESP 16; TEMP 98.1
[2023-08-11 14:50] LABS: ALT 24 U/L (4-34); AST 23 U/L (14-36); African American GFR (CKD) >90 (>60 ml/min/1.73 sqM); Albumin 3.7 g/dL (3.5-5.0); Alkaline Phosphatase 53 U/L (38-126); Anion Gap 6 mmol/L; Blood Urea Nitrogen 23 mg/dL (7-17); Carbon Dioxide 27 mmol/L (22-30); Chloride 101 mmol/L (98-107); Glucose 105 mg/dL (74-99); Non-African American GFR(CKD) >90 (>60 ml/min/1.73 sqM); Potassium 4.1 mmol/L (3.5-5.1); Sodium 134 mmol/L (137-145); Total Bilirubin 0.6 mg/dL (0.2-1.3); Total Protein 6.5 g/dL (6.3-8.2)
== END ==
LOC: PROCWHC3 13:46
PROVIDERS: ATTEND Surgery Plastic and Reconstructive Surgery
DX: E86.0 Dehydration (principal); Z88.0 Allergy status to penicillin; Z88.6 Allergy status to analgesic agent; Z88.8 Allergy status to other drugs, medicaments and biological substances; Z91.048 Other nonmedicinal substance allergy status
CPT/HCPCS: 80053; 85025; 96360

== ENCOUNTER → 2023-08-18 | Outpatient (CLI) | payer OTHER ==
[2023-08-18 21:24] LABS: Basophils # (A) 0.07 X 10*3/uL (0.00-0.10); Basophils % (A) 0.7 %; Eosinophils # (A) 0.13 X 10*3/uL (0.04-0.35); Eosinophils % (A) 1.3 %; HCT 33.6 % (37.2-46.3); HGB 10.5 g/dL (12.0-15.0); Lymphocytes # (A) 1.85 X 10*3/uL (0.90-5.00); MCH 26.7 pg (27.0-32.0); MCHC 31.3 g/dL (32.0-37.0); MCV 85.5 FL (80.0-97.0); Monocytes # (A) 0.82 X 10*3/uL (0.20-1.00); Monocytes % (A) 8.4 %; NRBC Per 100 WBC 0 X 10*3/uL (0.00-0.01); Neutrophils # (A) 6.63 X 10*3/uL (1.80-7.70); Neutrophils % (A) 68.3 %; Platelet Count 509 X 10*3/uL (140-440); RBC 3.93 X 10*6/uL (4.10-5.20); RDW 13.9 % (11.5-14.5); WBC 9.72 X 10*3/uL (4.50-10.00)
== END | disposition home or self-care (01) ==
LOC: LABPAT 14:01
PROVIDERS: ATTEND Surgery Plastic and Reconstructive Surgery
DX: Z01.812 Encounter for preprocedural laboratory examination (principal)
CPT/HCPCS: 36415; 85025

== ENCOUNTER → 2023-09-01 | Outpatient (CLI) | payer OTHER ==
[2023-09-01 13:42] VITALS: BP 127/81; PULSE 91; TEMP 98.3; BMI 44.4
--- NOTE | 2023-09-01 14:24 | P.BASOAP ---
Subjective Progress Note Date: 09/01/23 She reports spontaneous drainage when taking a shower with 800 mL drained per . Her abdomen is flat. She has lost 4 pounds. She reports tenderness and redness new along incision. Start Ciprofloxacin. Keep appt for US drainage. FU in 1 week. Binder discarded with presence of pet hair and risk of infection. Return to work delayed by another 3 weeks. Objective - Vital Signs Vital signs: Vital Signs Temp 98.3 F 09/01/23 13:28 Pulse 91 09/01/23 13:28 Resp BP 127/81 09/01/23 13:28 Pulse Ox FiO2 Intake & Output 08/31/23 09/01/23 09/01/23 18:59 06:59 18:59 Weight 113.852 kg Assessment/Plan Plan: Date: 09/01/23 Initial Weight: 170.097 kg Initial BMI: 66.4 Current Weight: 113.852 kg Current BMI: 44.4 Type of Surgery: Total Volume in Band: Previous Volume: Volume Removed: Volume Added: Band Size:
--- NOTE | 2023-09-01 14:26 | P.PN ---
Progress Note - Text Progress Note Date: 09/01/23 To whom it may concern: Kayleigh Fischer is my under my surgical care. She is still recovering and may not return to work until September 28, 2023. Regards, Carol Hoffman MD FACS
== END ==
LOC: BARWHC3 12:57
PROVIDERS: ATTEND Surgery Plastic and Reconstructive Surgery
DX: Z53.9 Procedure and treatment not carried out, unspecified reason (principal)
CPT/HCPCS: 99212

== ENCOUNTER 2023-09-08 13:19 | Day surgery (SDC) | payer OTHER ==
[2023-09-08 14:17] VITALS: RESP 18; TEMP 99.1
--- NOTE | 2023-09-08 14:30 | US ---
ULTRASOUND GUIDED ANTERIOR ABDOMINAL WALL SEROMA ASPIRATION: CLINICAL HISTORY: Request for ultrasound-guided aspiration by referring clinician for postoperative a nterior abdominal subcutaneous seroma. FINDINGS: The procedure was explained to the patient. The risks, complications, benefits and alternatives were discussed and any questions were answered. Informed consent was obtained. Patient was placed supin e on the ultrasound table and prepped and draped in the usual sterile fashion. Utilizing a 20 gauge needle, access was made into the anterior abdominal subcutaneous collection and approximately 40 cc o f serous fluid was aspirated. No residual collection post aspiration. Patient was stable throughout the procedure. All elements of maximal barrier and sterile technique were utilized. IMPRESSION: 1. Successful ultrasound guided seroma aspiration.
[2023-09-08 15:06] VITALS: BP 117/67; PULSE 87
== END 2023-09-08 14:35 | disposition home or self-care (01) ==
LOC: RADPROMAIN 13:19
PROVIDERS: ATTEND Surgery Plastic and Reconstructive Surgery
DX: K91.872 Postprocedural seroma of a digestive system organ or structure following a digestive system procedure (principal); Y83.8 Other surgical procedures as the cause of abnormal reaction of the patient, or of later complication, without mention of misadventure at the time of the procedure
CPT/HCPCS: 10030; 76942

== ENCOUNTER → 2023-09-08 | Outpatient (CLI) | payer OTHER ==
[2023-09-08 15:29] VITALS: BP 145/90; PULSE 96; TEMP 98.3; BMI 43.9
--- NOTE | 2023-09-08 15:41 | P.BASOAP ---
Subjective Progress Note Date: 09/08/23 DATE OF SERVICE: 09/08/23 CHIEF COMPLAINT: Status post panniculectomy HISTORY OF PRESENT ILLNESS: Kayleigh Fischer is a 33-year-old female status post sleeve gastrectomy, 05/12/2021. She is 2 years out. She is now status post panniculectomy 07/26/2023. She is 6 weeks postop. She is doing well. She has no further redness. Her protein intake is 60 to 70 grams daily. She is status post drainage from the radiologist 100 mL. She is ambulating. She denies abdominal pain. At height of 5 feet 3 inches, her ideal body weight is 140 pounds. Her highest 374 pounds with body mass index 66.4. She comes in 248 pounds from 250 pounds, 1 week ago. She has lost 2 pounds in 1 week. She is 108 pounds overweight. Lifetime weight loss of 126 pounds. Lifetime percent excess weight loss of 54%. PHYSICAL EXAM: VITAL SIGNS: Height 5 foot 3 inches, weight 248 pounds. BMI 44.0 Vital Signs Temp 98.3 F 09/08/23 15:14 Pulse 96 09/08/23 15:14 Resp BP 145/90 09/08/23 15:14 Pulse Ox FiO2 GENERAL: Well-developed in no acute distress. HEENT: No scleral icterus. Extraocular movements grossly intact. Hears conversational speech. No nasal drainage. NECK: Supple without lymphadenopathy. CHEST: Nonlabored respirations with equal bilateral excursions. CARDIOVASCULAR: Regular rate and rhythm. Distal 2+ pulses. ABDOMEN: Resolved cellulitis. No palpable seroma. Abdominal flap viable. Abdominal binder repositioned. MUSCULOSKELETAL: No clubbing, cyanosis. NEURO: No focal or lateralizing signs. Cranial nerves 2 through 12 grossly within normal limits. PSYCH: Appropriate affect. Alert and oriented to person, place and time. SKIN: Good skin turgor. ASSESSMENT: 1. Panniculitis status post panniculectomy 2. Abdominal wall seroma 3. Osteoarthritis of the knees. 4. Osteoarthritis of the hips 5. Osteoarthritis of the lower back. 6. Gastroesophageal reflux disease 7. Crohns disease 8. Elevated liver enzymes 9. Hypertriglyceridemia 10. Iron deficiency anemia 11. Secondary hyperparathyroidism 12. Hypertensive heart disease 13. Generalized anxiety disorder 14. Tachycardia 15. Fatty liver disease 16. Gallstones 17. Right upper quadrant abdominal pain 18. Vitamin A deficiency 19. Status post cholecystectomy 20. Dietary surveillance and counseling. 21. Hypertensive heart disease. 22. Adverse reaction to skin glue 23. Status post sleeve gastrectomy 24. Chronic fatigue 25. Morbid obesity due to excess calories 26. Body mass index of 66.4, initial to 44.0 27. Abdominal wall cellulitis PLAN: 1. She is doing well with no further redness. 2. Continue protein intake 60 to 70 grams daily. 3. Okay to return work for WednesdaySep 13. 4. Abdominal binder for 2 weeks post drainage. Objective - Vital Signs Vital signs: Vital Signs Temp 98.3 F 09/08/23 15:14 Pulse 96 09/08/23 15:14 Resp BP 145/90 09/08/23 15:14 Pulse Ox FiO2 Intake & Output 09/07/23 09/08/23 09/08/23 18:59 06:59 18:59 Weight 112.582 kg Assessment/Plan Plan: Date: 09/08/23 Initial Weight: 170.097 kg Initial BMI: 66.4 Current Weight: 112.582 kg Current BMI: 43.9 Type of Surgery: Total Volume in Band: Previous Volume: Volume Removed: Volume Added: Band Size:
--- NOTE | 2023-09-08 15:44 | P.PN ---
Progress Note - Text Progress Note Date: 09/08/23 To whom it may concern: Kayleigh Fischer is under my surgical care. She may return to work Wednesday, September 13, 2023 with 4 pounds lifting restrictions until September 27. She will be off restrictions September 28, 2023. Regards, Carol Hoffman MD, FACS
== END ==
LOC: BARWHC3 14:30
PROVIDERS: ATTEND Surgery Plastic and Reconstructive Surgery
DX: K21.9 Gastro-esophageal reflux disease without esophagitis (principal); E66.01 Morbid (severe) obesity due to excess calories; K91.872 Postprocedural seroma of a digestive system organ or structure following a digestive system procedure; M17.0 Bilateral primary osteoarthritis of knee; M16.0 Bilateral primary osteoarthritis of hip; K50.10 Crohn's disease of large intestine without complications; K76.0 Fatty (change of) liver, not elsewhere classified; R74.01 Elevation of levels of liver transaminase levels; E78.1 Pure hyperglyceridemia; D50.9 Iron deficiency anemia, unspecified; E21.1 Secondary hyperparathyroidism, not elsewhere classified; I11.9 Hypertensive heart disease without heart failure; F41.1 Generalized anxiety disorder; K80.20 Calculus of gallbladder without cholecystitis without obstruction; R53.82 Chronic fatigue, unspecified; L03.311 Cellulitis of abdominal wall; E50.9 Vitamin A deficiency, unspecified; R10.11 Right upper quadrant pain; T49.95XA Adverse effect of unspecified topical agent, initial encounter; Z71.3 Dietary counseling and surveillance; Z68.41 Body mass index [BMI] 40.0-44.9, adult; Z90.49 Acquired absence of other specified parts of digestive tract; Z98.84 Bariatric surgery status; Z98.890 Other specified postprocedural states; Z91.048 Other nonmedicinal substance allergy status; Z88.6 Allergy status to analgesic agent; Z88.0 Allergy status to penicillin; Z88.8 Allergy status to other drugs, medicaments and biological substances
CPT/HCPCS: 99212